=== PATIENT | male | born 1955 | race Caucasian/White ===

== ENCOUNTER 2017-10-01 11:31 | Day surgery (SDC) | payer BC ==
[~2017-10-01] VITALS: Ht 177.8 cm; Wt 82.2 kg
[~2017-10-01 11:31] MED LIST: BUPIVACAINE/PF 0.5% ONE
[2017-10-01] MEDS ORDERED: LACTATED RINGERS 1,000 ML IV SCH (12:06)
[2017-10-01] MEDS ORDERED: LIDOCAINE 1%, 2ML ONE (12:27)
[2017-10-01] MEDS ORDERED: LIDOCAINE 1%, 2ML SQ PRN (12:30)
[2017-10-01] MEDS ORDERED: FISH OIL PO (12:30)
[2017-10-01 12:31] VITALS: BP 149/99
[2017-10-01 12:40] VITALS: BP 141/99
[2017-10-01] MEDS ORDERED: FENTANYL PF 250 MCG/5ML ONE (12:58)
[2017-10-01] MEDS ORDERED: MIDAZOLAM 1 MG/ML, 2ML ONE (12:59)
[2017-10-01] MEDS ORDERED: NEOSTIGMINE 1 MG/ML, 10ML ONE (13:10)
[2017-10-01] MEDS ORDERED: ROCURONIUM 10 MG/ML,10ML ONE (13:10)
[2017-10-01] MEDS ORDERED: DEXAMETHASONE 4 MG/ML, 5ML ONE (13:10)
[2017-10-01] MEDS ORDERED: PROPOFOL 10 MG/ML, 20ML ONE (13:10)
[2017-10-01] MEDS ORDERED: ONDANSETRON 2MG/ML, 2ML ONE (13:10)
[2017-10-01] MEDS ORDERED: GLYCOPYRROLATE 0.2MG/1ML, 5ML ONE (13:10)
[2017-10-01] MEDS ORDERED: LABETALOL 5MG/ML, 20ML ONE (13:10)
[2017-10-01] MEDS ORDERED: KETOROLAC 30 MG/1 ML ONE (13:10)
[2017-10-01] MEDS ORDERED: SUCCINYLCHOLINE 20 MG/ML, 10ML ONE (13:10)
[2017-10-01] MEDS ORDERED: METOPROLOL 1 MG/ML, 5ML ONE (13:10)
[2017-10-01] MEDS ORDERED: CEFAZOLIN 1,000 MG ONE (13:10)
[2017-10-01] MEDS ORDERED: BUPIVACAINE/PF-EPI 0.5% 1:200K IM ONE (13:45)
[2017-10-01] MEDS ORDERED: LABETALOL 5MG/ML, 20ML IV PRN (14:30)
[2017-10-01] MEDS ORDERED: hydrALAzine 20 MG/ML, 1ML IV PRN (14:30)
[2017-10-01] MEDS ORDERED: OXYcodone 5 MG/5 ML ORAL.SOL UDC PO PRN (14:30)
[2017-10-01] MEDS ORDERED: ONDANSETRON 2MG/ML, 2ML IVPush PRN (14:30)
[2017-10-01] MEDS ORDERED: HYDROmorphone 1 MG/ML, 1ML IV PRN (14:30)
[2017-10-01] MEDS ORDERED: ACETAMINOPHEN 650 MG/20.3 ML UDC ONE (15:00)
[2017-10-01] MEDS ORDERED: FENTANYL PF 100 MCG/2ML ONE (15:01)
[2017-10-01] MEDS ORDERED: ACETAMINOPHEN 325 MG TABLET ONE (15:01)
[2017-10-01] MEDS ORDERED: OXYcodone 5 MG/5 ML ORAL.SOL UDC ONE (15:01)
[2017-10-01] MEDS: FENTANYL PF 100 MCG/2ML IV PRN ×2 (15:05→15:11)
== END 2017-10-01 18:06 ==
LOC: OUT 11:31
PROVIDERS: ATTEND Surgery
DX: K40.90 Unilateral inguinal hernia, without obstruction or gangrene, not specified as recurrent (principal); I48.91 Unspecified atrial fibrillation
CPT/HCPCS: 49650; 93005; C1781; J0330; J0690; J1100; J1885; J2250; J2405; J2704; J2710; J3010; J3490; J7120; S2900